=== PATIENT | female | born 1960 | race Caucasian/White ===

== ENCOUNTER → 2019-02-17 | Outpatient (REF) | payer OTHER ==
--- NOTE | 2019-02-18 10:40 | RADIOLOGY IMAGING REPORT ---
[place] [facility] [place] NAME: MANPREET GORDON : [id number] MR: [id number] V: [id number] EXAM DATE: ORDERING PHYSICIAN: SOFIA STANTON TECHNOLOGIST: Aleta Strickland PROCEDURE: BILATERAL DIGITAL SCREENING MAMMOGRAM WITH CAD ASSISTED INTERPRETATION & 3D TOMOSYNTHESIS REASON FOR STUDY: Screening. FAMILY HISTORY OF BREAST CANCER: None. BREAST PROCEDURES/TREATMENTS: None. COMPARISON: Prior mammograms 05/13/13. VIEWS OBTAINED: 2D & 3D full field CC & MLO. BREAST DENSITY: There are scattered areas of fibroglandular density throughout the breasts. MAMMOGRAM FINDINGS: The parenchymal pattern has remained stable allowing for difference in mammographic technique & patient positioning. IMPRESSION: BIRADS 1: Negative. DIAGNOSTIC CATEGORY 1--NEGATIVE. RECOMMENDATIONS: ROUTINE MAMMOGRAM AND CLINICAL EVALUATION. Dictated by: Kaelyn Nascimento M.D. on 02/17/2019 at 17:44 Transcribed by: JOSÉ MIGUEL on 02/18/2019 at 8:47 Approved by: Kaelyn Nascimento M.D. on 02/18/2019 at 10:39 [facility]
== END ==
LOC: MAMO 01-07 01:05
PROVIDERS: ATTEND Nurse Practitioner
DX: Z12.31 Encounter for screening mammogram for malignant neoplasm of breast (principal)
CPT/HCPCS: 77063; 77067